=== PATIENT | female | born 1990 | race African-American/Black ===

== ENCOUNTER 2021-09-16 02:48 | Emergency (ER) | payer MEDICAID ==
[~2021-09-16] VITALS: Ht 160 cm; Wt 57.7 kg
[2021-09-16] MEDS ORDERED: EPINEPHRINE 1:1000 1 MG/ML AMP IM ONE (03:15)
[2021-09-16] MEDS ORDERED: DIPHENHYDRAMINE 50MG/ML VIAL IV ONE (03:15)
[2021-09-16] MEDS ORDERED: SODIUM CHLORIDE 0.9% 1,000 ML IV SCH (03:15)
[2021-09-16] MEDS ORDERED: FAMOTIDINE 20MG/2ML VIAL IV ONE (03:15)
[2021-09-16] MEDS ORDERED: METHYLPREDNISOLONE SOD SUCC 125 MG/2 ML VIAL IV ONE (03:15)
[2021-09-16 03:29] LABS: BASOPHILS % 0.7 % (0.0-2.0); EOSINOPHILS % 3.8 % (0.0-5.0); HEMATOCRIT. 41.5 % (36.0-48.0); HEMOGLOBIN. 13.9 g/dL (12.0-16.0); LYMPHOCYTES % 47.6 % (20.0-50.0); MEAN CORPUSCULAR HEMOGLOBIN 29.9 pg (28.0-32.0); MEAN CORPUSCULAR VOLUME 89.2 fL (81.0-99.0); MEAN PLATELET VOLUME 9.2 fl (7.4-10.4); MONOCYTES % 6.2 % (2.0-8.0); NEUTROPHILS % 41.7 % (40.0-76.0); PLATELET 270 x1000/uL (130-400); RED BLOOD CELL COUNT 4.65 mill/uL (4.2-5.4); RED CELL DISTRIBUTION WIDTH 12.6 % (11.6-14.6)
[2021-09-16 03:38] LABS: CHLORIDE 109 mEq/L (98-107)
[2021-09-16] MEDS ORDERED: FAMO-135 MT (04:55)
[2021-09-16] MEDS ORDERED: ALBU6.7H9 INH (04:55)
[2021-09-16] MEDS ORDERED: MED4 MT (04:55)
[2021-09-16] MEDS ORDERED: EPIN0.3P3 IM (04:55)
[2021-09-16] MEDS ORDERED: DIPH25TA62 MT (04:55)
[2021-09-16 06:20] VITALS: BP 100/70
== END 2021-09-16 06:45 | disposition home or self-care (01) ==
LOC: ER 02:48
DX: T78.40XA Allergy, unspecified, initial encounter (principal); X58.XXXA Exposure to other specified factors, initial encounter; I10 Essential (primary) hypertension; Z79.899 Other long term (current) drug therapy
CPT/HCPCS: 36415; 80053; 81025; 85025; 96372; 96374; 96375; 99284; J1200; J2930; J3490